=== PATIENT | female | born 1945 | race Caucasian/White ===

== ENCOUNTER 2019-01-01 10:44 | Day surgery (SDC) | payer MEDICARE ==
[~2019-01-01 10:44] MED LIST: CEFAZOLIN 2 Gram 2 GM/50 ML BAG IVPB SCH
[2019-01-01] MEDS ORDERED: DEXAMETHASONE 4 MG/ML 1ML VIAL IVP ONE (10:45)
[2019-01-01] MEDS ORDERED: GLYCOPYRROLATE 0.2 MG/ML ML IV ONE (10:45)
[2019-01-01] MEDS ORDERED: BUPIVACAINE LIPOSOME/PF 133MG/10ML VIAL IV ONE (10:45)
[2019-01-01] MEDS ORDERED: MIDAZOLAM HCL 2MG/2ML VIAL IV ONE (10:45)
[2019-01-01] MEDS ORDERED: PROPOFOL 10 MG/ML VIAL IV ONE (10:45)
[2019-01-01] MEDS ORDERED: LABETALOL HCL 5MG/ML, 20ML VIAL IV ONE (10:45)
[2019-01-01] MEDS ORDERED: BUPIVACAINE 0.25% MPF 30ML VIAL IVP ONE (10:45)
[2019-01-01] MEDS ORDERED: MORPHINE SULFATE PF 10MG/10ML *10ML VIAL IV ONE (10:45)
[2019-01-01] MEDS ORDERED: KETAMINE HCL 100MG/1ML VIAL INJ ONE (10:45)
[2019-01-01] MEDS ORDERED: RINGERS SOLUTION,LACTATED 1,000 ML IV ONE (12:02)
[2019-01-01] MEDS ORDERED: BUPIVACAINE 0.5% W/EPI MPF 30 ML VIAL SQ ONE (13:56)
[2019-01-01] MEDS ORDERED: METHYLPREDNISOLONE 40MG/VIAL IU ONE (13:57)
[2019-01-01] MEDS ORDERED: MORPHINE SULFATE 10MG/1ML **1ML VIAL IM ONE (13:57)
--- NOTE | 2019-01-02 08:00 | Operative Note ---
DATE OF SURGERY: 01/01/2019 PREOPERATIVE DIAGNOSIS: Left shoulder impingement, question rotator cuff tear with adhesive capsulitis. POSTOPERATIVE DIAGNOSES: 1. Small tear of the rotator cuff on the left. 2. Complex glenohumeral labral tear anteriorly. 3. Profound external impingement of left shoulder. 4. Arthrosis left distal clavicle. 5. Adhesive capsulitis, left shoulder. OPERATION: 1. Repair of a small tear of the rotator cuff. 2. Left shoulder arthroscopy with interarticular debridement. 3. Left shoulder open acromioplasty, CA ligament resection, subacromial bursectomy. 4. Left shoulder distal clavicle resection. 5. Left shoulder manipulation under anesthesia. STAFF SURGEON: Valente Marin MD ANESTHESIA: Scalene block with sedation. PREPARATION: Chloraprep. INDIVIDUAL CONSIDERATIONS: None. PROCEDURE: The patient was taken to the operating room. She had a successful induction of a scalene block. She was then placed in a semi-seated beach chair position, given IV sedation. I went ahead and manipulated her shoulder. At about 90 degrees of abduction, I felt resistance but I was able to easily bring her into full abduction and rotation. She was then prepped and draped in the usual fashion. The patient had posterior portal identified for arthroscopy. Skin was infiltrated with 0.5% Marcaine with epinephrine prior. An 18-gauge spinal needle was then easily placed in the joint, and the joint was inflated with normal saline. An anterior accessory portal was then made just inferior to the intact long head of the biceps tendon in a retrograde fashion with a Wissinger al, and the joint was irrigated out. The glenohumeral joint was normal. Long head was intact. Fraying of the anterior labrum was debrided but otherwise intact. Subscap was normal. Undersurface of the rotator cuff was injected and contused but otherwise intact from what I could see. After irrigation, portals were closed with gamaliel. The patient had an anterior approach to the subacromial space and distal clavicle. Skin was again infiltrated with 0.5% Marcaine with epinephrine prior. Sharp dissection carried down through skin and subcutaneous tissues. Small veins were coagulated with a Bovie. An anterior deltoid interval was developed. Care was taken not to split the deltoid more than about 4 cm distal to the anterior tip of the acromion to prevent injury to the axillary nerve. Once in the subacromial space, the patient had an extremely tight subacromial space. Huge spurs at the anterior acromion. A calcified CA ligament and spurs at the AC joint. CA ligament was resected. Distal clavicle was resected with an oscillating saw. An anterior acromioplasty was performed taking mainly a little over a centimeter, this basically being spur, and tapering towards posteromedially to include the spurs at the AC joint. The undersurface was smoothed with a rasp. A very thick bursa was debrided out. I now had a good look at the rotator cuff. There was a small tear where the spur at the AC joint was digging in. I was able to repair this [id number] with 3-0 Vicryl suture. After irrigation, the deltoid was reattached to the remaining acromion with multiple interrupted #2 Vicryl going directly through the bony acromion. The periosteal cuff of the distal clavicle was closed with running #2 Vicryl. Anterior deltoid interval was closed with running #1 Vicryl. Subcu was closed with 2-0 plus Vicryl in layers and skin was closed with gamaliel. A 22-gauge spinal needle was placed in the joint and this was injected with about 4 mL of 0.5% Marcaine with epinephrine along with 40 mg of Depo-Medrol. An 18-gauge spinal need was placed into the subacromial space, and this was injected with 10 mL of 0.5% Marcaine with epinephrine along with 40 mg of Depo-Medrol and 10 mg of morphine. A sterile bulky compressive dressing and sling were applied. The patient tolerated the procedure well. Needle and sponge counts were correct. Estimated blood loss was minimal. She was taken back to recovery in good condition. There were no complications. DANNY
== END 2019-01-01 15:05 | disposition home or self-care (01) ==
LOC: SUR 10:44
PROVIDERS: ATTEND Orthopaedic Surgery
DX: M75.102 Unspecified rotator cuff tear or rupture of left shoulder, not specified as traumatic (principal); S43.432A Superior glenoid labrum lesion of left shoulder, initial encounter; M75.02 Adhesive capsulitis of left shoulder; M19.012 Primary osteoarthritis, left shoulder; I10 Essential (primary) hypertension; E11.9 Type 2 diabetes mellitus without complications; E78.00 Pure hypercholesterolemia, unspecified; K21.9 Gastro-esophageal reflux disease without esophagitis; E66.9 Obesity, unspecified
CPT/HCPCS: 29823; 23410; 23130; 23700; 01630; 64415; 76942; J0690; C9290; J2270; J3490; J1030; J7120